=== PATIENT | female | born 1955 | race Caucasian/White ===

== ENCOUNTER 2022-11-26 19:59 | Emergency (ER) | payer MEDICARE ==
[~2022-11-26] VITALS: Ht 162.6 cm; Wt 60.0 kg
[2022-11-26] MEDS ORDERED: NS 1,000 ML IV ONE (20:25)
[2022-11-26 20:54] LABS: BASO % 0.4 % (0.0-1.0); EOS # 0.1 10^3/uL (0.0-0.5); EOS % 1.2 % (0.0-3.0); HEMATOCRIT 37.8 % (36.0-47.0); HEMOGLOBIN 12.8 g/dl (12.0-15.5); LYMPH # 2.8 10^3/uL (1.5-5.0); LYMPH % 36.1 % (24.0-44.0); MEAN CORPUSCULAR HEMOGLOBIN 30.7 pg (27.0-33.0); MEAN CORPUSCULAR HGB CONC 33.9 g/dl (32.0-36.5); MEAN CORPUSCULAR VOLUME 90.6 fl (80.0-96.0); MONO # 0.5 10^3/uL (0.0-0.8); NEUTROPHILS # 4.3 10^3/uL (1.5-8.5); NEUTROPHILS % 55.9 % (36.0-66.0); PLATELET COUNT, AUTOMATED 211 10^3/uL (150-450); RED BLOOD COUNT 4.17 10^6/uL (4.00-5.40); WHITE BLOOD COUNT 7.7 10^3/uL (4.0-10.0)
[2022-11-26 21:23] LABS: ETHYL ALCOHOL (ETHANOL) 0.273 % (0.000-0.010)
[2022-11-26 21:24] LABS: ACETAMINOPHEN LEVEL < 2.0 UG/ML (10.0-20.0); ALBUMIN 3.6 G/DL (3.2-5.2); ALKALINE PHOSPHATASE 77 U/L (46-116); ALT/SGPT 11 U/L (7.0-40); AST/SGOT 31 U/L (<34); BILIRUBIN,DIRECT 0.1 MG/DL (<0.4); BILIRUBIN,TOTAL 0.4 MG/DL (0.3-1.2); BLOOD UREA NITROGEN 14 MG/DL (9-23); CALCIUM LEVEL 8.5 MG/DL (8.3-10.6); CARBON DIOXIDE LEVEL 26 MMOL/L (20-31); CHLORIDE LEVEL 106 MMOL/L (98-107); CREATININE FOR GFR 0.93 MG/DL (0.55-1.30); GLOMERULAR FILTRATION RATE > 60.0 (>45); GLUCOSE, FASTING 97 MG/DL (74-106); POTASSIUM SERUM 3.5 MMOL/L (3.5-5.1); SALICYLATE LEVEL < 3.0 MG/DL (<30); SODIUM LEVEL 141 MMOL/L (136-145); TOTAL PROTEIN 6.2 G/DL (5.7-8.2)
[2022-11-26 21:25] LABS: RSV AMPLIFICATION NEGATIVE (NEGATIVE)
[2022-11-26 21:26] LABS: THYROID STIMULATING HORMONE 1.488 uIU/ML (0.55-4.78)
[2022-11-26 21:30] LABS: CPK CREATINE PHOSPHOKINASE 95 U/L (34-145)
[2022-11-26 23:34] LABS: AMPHETAMINES LEVEL URINE NEGATIVE (NEGATIVE); BARBITURATES URINE NEGATIVE (NEGATIVE); BENZODIAZEPINES URINE NEGATIVE (NEGATIVE); COCAINE METABOLITE URINE NEGATIVE (NEGATIVE); METHADONE URINE NEGATIVE (NEGATIVE); OPIATES URINE NEGATIVE (NEGATIVE); PHENCYCLIDINE URINE NEGATIVE (NEGATIVE)
[2022-11-26 23:35] LABS: CANNABINOIDS URINE POSITIVE (NEGATIVE)
[2022-11-27 00:34] VITALS: BP 124/66; O2SAT 97
== END 2022-11-27 00:55 | disposition home or self-care (01) ==
LOC: M ED 19:59 → EDBD 19:59 → M ED 11-27 00:55
DX: F10.129 Alcohol abuse with intoxication, unspecified (principal)

== ENCOUNTER → 2023-02-15 | Outpatient (CLI) | payer MEDICARE | LOC: M RAD 13:22 | PROVIDERS: ATTEND Internal Medicine | DX: N83.291 Other ovarian cyst, right side (principal); N83.292 Other ovarian cyst, left side; N83.8 Other noninflammatory disorders of ovary, fallopian tube and broad ligament ==

== ENCOUNTER → 2023-06-05 | Outpatient (CLI) | payer MEDICARE | LOC: M WHC 08:05 | PROVIDERS: ATTEND Internal Medicine | DX: Z12.31 Encounter for screening mammogram for malignant neoplasm of breast (principal) ==

== ENCOUNTER → 2023-06-14 | Outpatient (CLI) | payer MEDICARE ==
[2023-06-14 17:07] LABS: CARCINOEMBRYONIC ANTIGEN < 2.0 NG/ML (<2.5)
[2023-06-14 17:22] LABS: CA19-9 TUMOR MARKER,CARBOHYDRA 4.5 U/ML (<35.0)
== END ==
LOC: M PLALAB 12:13
PROVIDERS: ATTEND Specialist
DX: N83.209 Unspecified ovarian cyst, unspecified side (principal)

== ENCOUNTER → 2023-06-18 | Outpatient (CLI) | payer MEDICARE | LOC: M WHC 09:15 | PROVIDERS: ATTEND Internal Medicine | DX: N64.89 Other specified disorders of breast (principal) | CPT/HCPCS: 77065; G0279 ==

== ENCOUNTER → 2023-06-25 | Outpatient (CLI) | payer MEDICARE | LOC: M WHC 11:23 | PROVIDERS: ATTEND Specialist | DX: N83.209 Unspecified ovarian cyst, unspecified side (principal) ==

== ENCOUNTER → 2024-04-02 | Outpatient (CLI) | payer MEDICARE | LOC: M RAD 11:15 | PROVIDERS: ATTEND Internal Medicine | DX: R19.00 Intra-abdominal and pelvic swelling, mass and lump, unspecified site (principal) ==

== ENCOUNTER → 2024-05-05 | Outpatient (CLI) | payer MEDICARE ==
[~2024-05-05] MED LIST: ISOVUE-370 76% 100ML VIAL ONE
== END ==
LOC: M PLAIMG 07:00
PROVIDERS: ATTEND Internal Medicine
DX: N85.8 Other specified noninflammatory disorders of uterus (principal); R19.00 Intra-abdominal and pelvic swelling, mass and lump, unspecified site
CPT/HCPCS: 72197; Q9967

== ENCOUNTER → 2024-05-11 | Outpatient (REF) | payer MEDICARE ==
[2024-05-11 19:23] LABS: CARCINOEMBRYONIC ANTIGEN < 2.0 NG/ML (<2.5)
== END ==
LOC: M LAB REF 16:20
PROVIDERS: ATTEND Internal Medicine
DX: N83.201 Unspecified ovarian cyst, right side (principal)

== ENCOUNTER 2024-09-07 09:21 | Day surgery (SDC) | payer MEDICARE ==
[~2024-09-07] VITALS: Ht 162.6 cm; Wt 80.7 kg
[~2024-09-07 09:21] MED LIST changes: +BUPR-597 PO; +GABA-1171 PO; +HYDR50TA70 PO; -ISOVUE-370 76% 100ML VIAL ONE; +LAMO100T3 PO; +LR 1,000 ML IV SCH; +MIDAZOLAM INJ 2MG/2ML VIAL As Ordered ONE; +MIRT1TAB16 PO; +fentaNYL 100 MCG/2 ML INJECTION As Ordered ONE
[2024-09-07] MEDS: FLURBIPROFEN 0.03% OPHTH SOLN 2.5 ML OS SCH (09:33)
[2024-09-07] MEDS: PHENYLEPHRINE 2.5% OPHTH SOL 2ML OS SCH (09:33)
[2024-09-07] MEDS: TETRACAINE 0.5% OPHTH SOLN 4ML OS SCH (09:33)
[2024-09-07] MEDS: CYCLOPENTOLATE 1% OPHTH SOLN 2ML BTL OS SCH (09:34)
[2024-09-07] MEDS: LIDOCAINE 1% SDV 5ML VIAL As Ordered ONE (10:42)
[2024-09-07] MEDS: CEFUROXIME 1MG/0.1ML INTRACAMERAL INJ As Ordered ONE (10:50)
[2024-09-07 11:04] VITALS: BP 181/81; TEMP 96.6; O2SAT 100
== END 2024-09-07 11:30 | disposition home or self-care (01) ==
LOC: M SDC 09:21
PROVIDERS: ATTEND Ophthalmology
DX: H25.12 Age-related nuclear cataract, left eye (principal); F33.1 Major depressive disorder, recurrent, moderate; F41.1 Generalized anxiety disorder; G47.00 Insomnia, unspecified; Z79.899 Other long term (current) drug therapy; Z90.89 Acquired absence of other organs; Z87.891 Personal history of nicotine dependence
CPT/HCPCS: 66984; J0697; J2250; J3010; V2632

== ENCOUNTER → 2024-09-15 | Outpatient (REF) | payer MEDICARE ==
[~2024-09-15] MED LIST changes: -LR 1,000 ML IV SCH; -MIDAZOLAM INJ 2MG/2ML VIAL As Ordered ONE; -fentaNYL 100 MCG/2 ML INJECTION As Ordered ONE
== END ==
LOC: M LAB REF 16:36
PROVIDERS: ATTEND Internal Medicine
DX: N83.209 Unspecified ovarian cyst, unspecified side (principal)

== ENCOUNTER → 2025-03-15 | Outpatient (CLI) | payer MEDICARE ==
[~2025-03-15] MED LIST changes: -BUPR-597 PO; +BUPR-766 PO
== END ==
LOC: M RAD 13:12
PROVIDERS: ATTEND Internal Medicine
DX: R60.0 Localized edema (principal)

== ENCOUNTER 2025-04-06 09:54 | Day surgery (SDC) | payer MEDICARE ==
[~2025-04-06] VITALS: Ht 162.6 cm; Wt 79.8 kg
[2025-04-06 10:40] LABS: PLATELET COUNT, AUTOMATED 207 10^3/uL (150-450)
[2025-04-06] MEDS ORDERED: MIDAZOLAM INJ 2 MG/2 ML VIAL As Ordered ONE (11:26)
[2025-04-06] MEDS ORDERED: ROCURONIUM BROMIDE 50MG/5ML VIAL As Ordered ONE (11:27)
[2025-04-06] MEDS ORDERED: dexAMETHasone 4 MG/ML 1 ML VIAL As Ordered ONE (11:27)
[2025-04-06] MEDS ORDERED: ONDANSETRON 4MG 2ML VIAL As Ordered ONE (11:27)
[2025-04-06] MEDS ORDERED: LIDOCAINE 2% 100 MG/5 ML SDV (FOR ANES.) As Ordered ONE (11:27)
[2025-04-06] MEDS: LR 1,000 ML IV SCH (11:28)
[2025-04-06] MEDS ORDERED: ACETAMINOPHEN 1000MG/100ML IV BAG As Ordered ONE (12:43)
[2025-04-06] MEDS ORDERED: KETOROLAC 30 MG/ML 1 ML VIAL As Ordered ONE (12:57)
[2025-04-06] MEDS ORDERED: SUGAMMADEX SODIUM 200 MG/2 ML VIAL As Ordered ONE (13:12)
[2025-04-06] MEDS ORDERED: hydrALAZINE 20 MG/ML 1 ML VIAL As Ordered ONE (13:21)
[2025-04-06] MEDS ORDERED: HYDROMORPHONE HCL 0.5 MG/0.5 ML SYRINGE IV PRN (14:40)
[2025-04-06] MEDS ORDERED: MORPHINE 2 MG/ML 1 ML VIAL IV PRN (14:40)
[2025-04-06] MEDS: FAMOTIDINE 20 MG/2 ML VIAL IVP ONE (14:55)
[2025-04-06] MEDS ORDERED: IBUP600T42 PO (15:15)
[2025-04-06] MEDS ORDERED: OXYC1TAB23 PO (15:18)
[2025-04-06 17:31] VITALS: BP 153/78; TEMP 97.9; O2SAT 98
== END 2025-04-06 17:51 | disposition home or self-care (01) ==
LOC: M SDC 09:54
PROVIDERS: ATTEND Specialist
DX: D27.1 Benign neoplasm of left ovary (principal); D27.0 Benign neoplasm of right ovary; K21.9 Gastro-esophageal reflux disease without esophagitis; F41.1 Generalized anxiety disorder; F33.1 Major depressive disorder, recurrent, moderate; Z79.899 Other long term (current) drug therapy
CPT/HCPCS: 36415; 58571; 85027; 86850; 86900; 86901; 88305; J0131; J0360; J0665; J1100; J1885; J2405; J3010

== ENCOUNTER 2025-04-10 18:14 | Inpatient (IN) | payer MEDICARE ==
[~2025-04-10] VITALS: Ht 162.6 cm; Wt 80.4 kg
[~2025-04-10 18:14] MED LIST changes: +IBUP600T42 PO; +OXYC1TAB23 PO
[2025-04-10 18:35] VITALS: BP 144/79; TEMP 98.1; O2SAT 96
[2025-04-10 19:46] VITALS: BP 150/79; TEMP 97.5; O2SAT 92
[2025-04-10 20:04] LABS: PLATELET COUNT, AUTOMATED 228 10^3/uL (150-450)
[2025-04-10 20:32] LABS: ALT/SGPT 25.0 U/L (7.0-40); AST/SGOT 22.0 U/L (<34); CALCIUM LEVEL 9.4 MG/DL (8.3-10.6); CARBON DIOXIDE LEVEL 29.0 MMOL/L (20-31); CHLORIDE LEVEL 105.0 MMOL/L (98-107); CREATININE FOR GFR 1.11 MG/DL (0.55-1.30); GLOMERULAR FILTRATION RATE 53.5 (>39); POTASSIUM SERUM 4.0 MMOL/L (3.5-5.1); SODIUM LEVEL 145.0 MMOL/L (136-145)
[2025-04-10] MEDS ORDERED: IBUP600T42 PO (21:09)
[2025-04-10] MEDS ORDERED: PERCOCET PO (21:09)
[2025-04-10] MEDS ORDERED: HOME MED LIST COMPLETE! XX SCH (21:10)
[2025-04-10] MEDS: LACTATED RINGER'S 1000 ML IV STA (22:53)
[2025-04-10] MEDS: ONDANSETRON 4MG 2ML VIAL IV PRN (23:51)
[2025-04-10] MEDS: MORPHINE 4 MG/ML 1 ML VIAL IV PRN (23:52)
[2025-04-10] MEDS: LR 1,000 ML IV SCH (23:52)
[2025-04-11] VITALS (9 sets, daily range): BP systolic 113–141; BP diastolic 62–83; TEMP 97–97.7; O2SAT 91–97
[2025-04-11] MEDS ORDERED: MIDAZOLAM INJ 2 MG/2 ML VIAL As Ordered ONE (01:00)
[2025-04-11] MEDS ORDERED: ROCURONIUM BROMIDE 50MG/5ML VIAL As Ordered ONE (01:00)
[2025-04-11] MEDS ORDERED: LIDOCAINE 2% 100 MG/5 ML SDV (FOR ANES.) As Ordered ONE (01:00)
[2025-04-11] MEDS ORDERED: ONDANSETRON 4MG 2ML VIAL As Ordered ONE (01:01)
[2025-04-11] MEDS ORDERED: dexAMETHasone 4 MG/ML 1 ML VIAL As Ordered ONE (01:01)
[2025-04-11] MEDS ORDERED: SUGAMMADEX SODIUM 500 MG/5 ML VIAL As Ordered ONE (01:37)
[2025-04-11] MEDS ORDERED: SUCCINYLCHOLINE 100MG/5ML SYRINGE As Ordered ONE (01:53)
[2025-04-11] MEDS ORDERED: PHENYLephrine 500MCG 5ML (100MCG/ML) SYRINGE As Ordered ONE (01:53)
[2025-04-11] MEDS ORDERED: KETOROLAC 30 MG/ML 1 ML VIAL As Ordered ONE (01:56)
[2025-04-11] MEDS ORDERED: MORPHINE 2 MG/ML 1 ML VIAL IV PRN (02:45)
[2025-04-11] MEDS ORDERED: HYDROMORPHONE HCL 0.5 MG/0.5 ML SYRINGE IV PRN (02:45)
[2025-04-11] MEDS: KETOROLAC 30 MG/ML 1 ML VIAL IV PRN (06:23)
[2025-04-11 08:17] LABS: PLATELET COUNT, AUTOMATED 237 10^3/uL (150-450)
[2025-04-11 08:45] LABS: ALT/SGPT 22.0 U/L (7.0-40); AST/SGOT 21.0 U/L (<34); CALCIUM LEVEL 8.5 MG/DL (8.3-10.6); CARBON DIOXIDE LEVEL 28.0 MMOL/L (20-31); CHLORIDE LEVEL 104.0 MMOL/L (98-107); CREATININE FOR GFR 0.99 MG/DL (0.55-1.30); GLOMERULAR FILTRATION RATE 61.3 (>39); POTASSIUM SERUM 4.5 MMOL/L (3.5-5.1); SODIUM LEVEL 142.0 MMOL/L (136-145)
[2025-04-11] MEDS: GABAPENTIN 100 MG CAP PO SCH (10:08)
[2025-04-11] MEDS: MIRTAZAPINE 15 MG TAB PO SCH (20:15)
[2025-04-12 06:00] VITALS: BP 124/76; TEMP 98.1; O2SAT 92
== END 2025-04-12 10:11 | disposition home or self-care (01) | DRG 355 ==
LOC: M MS5PR 18:14
PROVIDERS: ADMIT Specialist; ATTEND Specialist
PROC: 8E0W4CZ Robotic Assisted Procedure of Trunk Region, Percutaneous Endoscopic Approach (ICD-10-PCS; 2025-04-11)
PROC: 0WUF47Z Supplement Abdominal Wall with Autologous Tissue Substitute, Percutaneous Endoscopic Approach (ICD-10-PCS; principal; 2025-04-11 00:21)
DX: K43.0 Incisional hernia with obstruction, without gangrene (principal); G47.00 Insomnia, unspecified; F41.9 Anxiety disorder, unspecified; Z79.899 Other long term (current) drug therapy; Z98.42 Cataract extraction status, left eye; Z90.722 Acquired absence of ovaries, bilateral